=== PATIENT | female | born 2000 | race Two or more races ===

== ENCOUNTER 2024-11-16 10:04 | Observation (INO) | payer MEDICAID ==
[~2024-11-16] VITALS: Ht 162.6 cm; Wt 104.3 kg
[2024-11-16 10:23] LABS: Urine Bacteria None Seen /hpf (None Seen)
[2024-11-16] MEDS ORDERED: LACTATED RINGER'S 1,000 ML IV ONE (10:30)
[2024-11-16 10:45] LABS: Urine Blood Negative /uL (Negative); Urine Clarity Clear (Clear); Urine Color Light-Yellow (Yellow); Urine Protein, UAD Negative (Negative); Urine Specific Gravity 1.009 (1.001-1.035); Urine Squamous Epithelial Cell FEW /hpf (<5); Urine Urobilinogen Normal (Negative); Urine WBC 1 /HPF (0-5)
[2024-11-16 11:05] LABS: Amphetamine Screen, Urine Neg (NEGATIVE); Barbiturate Scree,Urine Neg (NEGATIVE); Benzodiazephine Screen, Urine Neg (NEGATIVE); Cannabinoid Screen, Urine Neg (NEGATIVE); Cocaine Screen, Urine Neg (NEGATIVE); Opiate Scree,Urine Neg (NEGATIVE); Phencyclidine Screen, Urine Neg (NEGATIVE)
[2024-11-16 11:37] LABS: Rapid Influenza A Positive (Negative); Rapid Influenza B Negative (Negative)
[2024-11-16 11:38] LABS: COVID19 ANTIGEN SOFIA FIA NEGATIVE (NEGATIVE)
[2024-11-16] MEDS ORDERED: OSEL75CA5 PO (11:52)
[2024-11-16 12:46] LABS: Basophils # (auto) 0 10 ^3/uL (0-0.2); Basophils % (auto) 0.3 % (0.0-2.0); Eosinophils # (auto) 0 10 ^3/uL (0-0.8); Eosinophils % (auto) 0.1 % (0.0-7.0); Hematocrit 29.8 % (36.0-46.0); Hemoglobin 9.9 g/dL (12.2-16.2); Lymphocytes # (auto) 0.8 10 ^3/uL (0.4-5.4); Lymphocytes % (auto) 10.1 % (10.0-50.0); Mean Corpuscular Hemoglobin 27.8 pg (28.0-32.0); Mean Corpuscular Hgb Conc. 33.1 g/dL (32.0-36.0); Mean Corpuscular Volume 83.8 fL (80.0-100.0); Monocytes # (auto) 0.8 10 ^3/uL (0-1.3); Monocytes % (auto) 10.7 % (0.0-12.0); Neutrophils # (auto) 5.9 10 ^3/uL (1.6-8.6); Neutrophils % (auto) 78.8 % (37.0-80.0); Nucleated Red Blood Cells % 0.1 %; Platelet Count (auto) 278 10^3/uL (140-450); Red Blood Cells 3.55 10^6/uL (4.0-5.20); Red Cell Distribution Width 15.6 % (11.8-14.3); White Blood Cell 7.5 10^3/uL (4.4-10.8)
--- NOTE | 2024-11-16 15:20 | DVHDS2 ---
Physician Discharge Progress N Final Diagnosis: Influenza A viral syndrome Secondary Diagnosis: Operations or Procedures: Operations or Procedures NST Commentary: Commentary SWAB positive for Influenza A Condition on Discharge: Guarded Disposition: Home Discharge Instructions: Diet: Regular Activity: Light activity Follow Up/Referral: 3-4 days w/ Primary OB Medications: Rx Tamiflu oral 75mg BID Follow Up Care: Discharge Statement: "Patient was advised to return to the ER or call 911 if any headaches, dizziness, shortness of breath, chest pain, abdominal pain, bleeding, fevers, or worsening of medical condition. Patient was counseled about treatment plan, medications, possible side effects, patientverbalized understanding. All questions were answered to the best of my ability. This discharge took greater then 30 minutes in planning, reviewing documentation, counseling the patient, and discussing with other team members." Visit Coding OBGYN Date of Service: Nov 16, 2024 Billing Provider: LAUREN JENKINS DO AQUARIUM SPECIALIST Common Visit Codes: 15231-IYX/OBS SAME DATE (HIGH) AQUARIUM SPECIALIST Procedure Codes: 74130-55- NON-STRESS TEST LAUREN JENKINS DO Nov 16, 2024 15:20
== END 2024-11-16 12:35 | disposition home or self-care (01) ==
LOC: LDRP 10:04
PROVIDERS: ADMIT Obstetrics & Gynecology; ATTEND Obstetrics & Gynecology
DX: O98.513 Other viral diseases complicating pregnancy, third trimester (principal); J10.1 Influenza due to other identified influenza virus with other respiratory manifestations; O99.891 Other specified diseases and conditions complicating pregnancy; M54.9 Dorsalgia, unspecified; O26.893 Other specified pregnancy related conditions, third trimester; R51.9 Headache, unspecified; M25.552 Pain in left hip; Z3A.33 33 weeks gestation of pregnancy; Z79.899 Other long term (current) drug therapy; Z98.890 Other specified postprocedural states; Z20.822 Contact with and (suspected) exposure to COVID-19
CPT/HCPCS: 36415; 59025; 80307; 81001; 81002; 85025; 87426; 87804; 94760; 96360; 96361; G0378

== ENCOUNTER 2024-12-02 23:02 | Observation (INO) | payer MEDICAID ==
[~2024-12-02 23:02] MED LIST: OSEL75CA5 PO
[2024-12-03 00:11] LABS: Fern Testing Negative
--- NOTE | 2024-12-03 00:27 | DVH ---
BIOPHYSICAL PROFILE HISTORY: Possible SROM Comparison Study: None available at time of dictation. TECHNIQUE: Multiple real-time grayscale sonographic images through the gravid uterus of the fetus wi th duplex Doppler color flow and M-mode spectral analysis FINDINGS: BIOPHYSICAL PROFILE: breathing score: 2 movement score: 2 tone score: 2 Quantitative OSORIO score: 2 Total score: 8/8 heart rate of 147 beats per minute. position is cephalic. OSORIO of 12.7 cm. Placenta is ant erior. Cervical length of 5.7 cm. Cervix appears closed. Estimated weight of 2917 g. Average u ltrasound age of 36 weeks 1 day with expected due date of December 29, 2024. IMPRESSION: Biophysical profile score: 8/8
[2024-12-03 00:35] LABS: Amphetamine Screen, Urine Neg (NEGATIVE); Barbiturate Scree,Urine Neg (NEGATIVE); Benzodiazephine Screen, Urine Neg (NEGATIVE); Cannabinoid Screen, Urine Neg (NEGATIVE); Cocaine Screen, Urine Neg (NEGATIVE); Opiate Scree,Urine Neg (NEGATIVE); Phencyclidine Screen, Urine Neg (NEGATIVE)
--- NOTE | 2024-12-03 06:17 | DVHDS2 ---
Discharge Summary Date of Admission Dec 02, 2024 at 23:02 Date of Discharge: Dec 03, 2024 Admitting Diagnosis Patient you for the patient rule SROM Wounds: none Labs/Diagnostic Data: Laboratory Results Test 12/02/24 23:30 Amniotic Fluid Ferning Test Negative Placental Sviub-2-Aupqnwzivpvgf Negative Urine Opiates Screen Neg (NEGATIVE) Urine Fentanyl Screen Neg (NEGATIVE) Urine Barbiturates Screen Neg (NEGATIVE) Urine Phencyclidine Screen Neg (NEGATIVE) Urine Amphetamines Screen Neg (NEGATIVE) Urine Benzodiazepines Screen Neg (NEGATIVE) Urine Cocaine Screen Neg (NEGATIVE) Urine Cannabinoids Screen Neg (NEGATIVE) Brief Hx & Hospital Course: Patient felt some watery leakage was not sure Consults/Reason for consult t was urine or amniotic fluid Operations or Procedures None Condition at Discharge: Good Final Diagnosis/Problems List Reassuring heart tones no evidence of ruptured membranes or infection Discharge Disposition: Home SNF Discharge Will this Physician continue t: No Discharge Instruct/Medications Diet: Regular Activity: Light activity (Pelvic rest) Follow Up/Referral: Primary Ob this week as scheduled kick counts SROM precautions Discharge Statement: "Patient was advised to return to the ER or call 911 if any headaches, dizziness, shortness of breath, chest pain, abdominal pain, bleeding, fevers, or worsening of medical condition. Patient was counseled about treatment plan, medications, possible side effects, patientverbalized understanding. All questions were answered to the best of my ability. This discharge took greater then 30 minutes in planning, reviewing documentation, counseling the patient, and discussing with other team members." ASSESSMENT ASSESSMENT Assessment Visit Coding OBGYN Date of Service: Dec 03, 2024 Billing Provider: MARGAUX BEARD DO DENTAL ASSISTANT INSTRUCTOR Common Visit Codes: 33009-BCD/OBS SAME DATE (LOW), 03975-PZE/OBS SAME DATE (MOD), 73938-NES/OBS SAME DATE (HIGH) DENTAL ASSISTANT INSTRUCTOR Procedure Codes: 56044-93- NON-STRESS TEST MARGAUX BEARD DO Dec 03, 2024 06:17
== END 2024-12-03 01:18 | disposition home or self-care (01) ==
LOC: LDRP 23:02
PROVIDERS: ADMIT Obstetrics & Gynecology; ATTEND Obstetrics & Gynecology
DX: O42.913 Preterm premature rupture of membranes, unspecified as to length of time between rupture and onset of labor, third trimester (principal); Z3A.36 36 weeks gestation of pregnancy; Z79.899 Other long term (current) drug therapy; Z98.890 Other specified postprocedural states
CPT/HCPCS: 59025; 76805; 76818; 80307; 81002; 84112; G0378; Q0114

== ENCOUNTER 2025-01-15 18:41 | Emergency (ER) | payer MEDICAID ==
[~2025-01-15] VITALS: Ht 167.6 cm; Wt 110.9 kg
[2025-01-15 19:39] VITALS: BP 118/65; PULSE 75; RESP 19; TEMP 97.7; O2SAT 98
[2025-01-15] MEDS ORDERED: AMOX875T4 PO (20:08)
--- NOTE | 2025-01-15 20:08 | ED.PDOC ---
History of Present Illness HPI Comments 24-YEAR-OLD FEMALE PRESENTS TO ER WITH COMPLAINTS OF COUGH X2 DAYS. PATIENT REPORTS THAT SHE HAS BEEN EXPERIENCING MILD DRY COUGH, RUNNY NOSE AND CONGESTION X2 DAYS. DENIES ANY PAIN. DENIES USE OF MEDICATIONS FOR CURRENT SYMPTOMS. PATIENT PRESENTS TO ER AMBULATORY ON ARRIVAL, WITH STEADY GAIT, IN NO DISTRESS AND VITALS STABLE. 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 Pertinent SOFT SUGAR SUPERVISOR History Family History Family History: Unknown Social History Smoker: Non-Smoker Alcohol: Denies ETOH Use Drugs: Denies Drug Use Lives In: Home Constitutional: No Symptoms Reported EENTM: See HPI Respiratory: See HPI Cardiovascular: No Symptoms Reported Gastrointestinal: No Symptoms Reported Genitourinary: No Symptoms Reported Neurological: No Symptoms Reported Musculoskeletal: No Symptoms Reported Integumentary: No Symptoms Reported Allergic/Immunocompromised: others (DENIES) Hematologic/Lymphatic: No Symptoms Reported Endocrine: No Symptoms Reported Psychiatric: No symptoms Reported Physical Exam General Appearance: No Apparent Distress, Obese HEENT: Normal ENT Inspection, Pharyngeal Erythema (MILD TONSILLAR SWELLING/ERYTHEMA NOTED BILATERALLY WITHOUT EXUDATES. UVULA-NORMAL), TMs Normal Neck: Full Range of Motion, Non-Tender, Normal Respiratory: Chest Non-Tender, Lungs Clear, No Accessory Muscle Use, No Respiratory Distress, Normal Breath Sounds Cardiovascular: No Murmur, No Gallop, Regular Rate/Rhythm Breast Exam: Deferred Gastrointestinal: NOT DONE Genitalia: Deferred Pelvic: Deferred Rectal: Deferred Extremities: Normal capillary refill, Normal range of motion Neurologic: Alert, lieutenant general II-XII nml as Tested, No Motor Deficits, Normal Affect, Normal Mood, No Sensory Deficits Cerebellar Function: Normal Reflexes: Normal Skin: Dry, Normal Color, Warm Lymphatic: No Adenopathy Was a procedure done? Was a procedure done?: No Sedation Sedation?: No Fever Differential Dx Differential Diagnosis: Pneumonia, Sepsis, Pharyngitis X-Ray, Labs, Meds, VS Vital Signs Date Time Temp Pulse Resp B/P (MAP) Pulse Ox O2 Delivery O2 Flow Rate FiO2 4/8/25 19:39 75 19 98 Room Air 01/15/25 19:39 97.7 75 19 118/65 (82) 98 97.7 01/15/25 18:56 97.7 75 19 118/65 (82) 98 97.7 ADVISED TO DRINK PLENTY OF FLUIDS ADVISED TO FOLLOW UP WITH PCP IN 1-2 DAYS PATIENT VERBALIZED UNDERSTANDING AND AGREEABLE WITH CURRENT PLAN OF CARE ADVISED TO RETURN TO ER IMMEDIATELY IF SYMPTOMS WORSEN Time of 1ST Reevaluation: 19:44 Reevaluation 1ST: N/A Patient Education/Counseling: Diagnosis, Treatment, Prognosis, Need For Follow Up Family Education/Counseling: No Family Present Departure 1 Departure Time of Disposition: 20:02 Impression: Primary Impression: Upper respiratory infection Qualified Codes: J06.9 - Acute upper respiratory infection, unspecified Disposition: 01 HOME / SELF CARE / HOMELESS Condition: Stable e-Prescriptions Amoxicillin & Pot Clavulanate (Amoxicillin/Potassium Cla) 875 Mg Tab 1 TAB PO BID for 7 Days, #14 TAB 0 Refills Prov: WILFREDO CORDOVA 01/15/25 Discharged With: Self Critical Care Note Critical Care Time?: No Stability Stability form required: No Heart Score Heart Score: Heart Score Response (Comments) Value History N/A 0 EKG N/A 0 Age N/A 0 Risk Factors N/A 0 Troponin N/A 0 Total 0 WILFREDO CORDOVA Jan 15, 2025 20:08
== END 2025-01-15 20:24 | disposition home or self-care (01) ==
LOC: ER 18:44
DX: J06.9 Acute upper respiratory infection, unspecified (principal); Z98.890 Other specified postprocedural states